=== PATIENT | female | born 1995 | race Caucasian/White ===

== ENCOUNTER 2023-04-08 19:26 | Emergency (ER) | payer BC ==
[~2023-04-08] VITALS: Ht 162.6 cm; Wt 52.2 kg
[2023-04-08 20:16] VITALS: BP_SYST 126; PULSE 70; RESP 16; TEMP 97.9; O2SAT 99
[2023-04-08 21:01] VITALS: BP_SYST 126; PULSE 70; RESP 16; TEMP 97.9; O2SAT 99
== END 2023-04-08 21:01 | disposition home or self-care (01) ==
LOC: SED 19:26
DX: H53.8 Other visual disturbances (principal); G43.909 Migraine, unspecified, not intractable, without status migrainosus; Z79.899 Other long term (current) drug therapy
CPT/HCPCS: 99281